=== PATIENT | male | born 1945 | race Caucasian/White ===

== ENCOUNTER 2016-10-10 19:33 | Observation (INO) | payer SELFPAY ==
[2016-10-10 19:45] VITALS: BP 116/71; PULSE 77; RESP 18; TEMP 97.9; O2SAT 98
[2016-10-10 20:16] LABS: BASO # 0.1 K/uL (0.0-0.2); BASO % 0.6 % (0.0-2.0); EOS # 0.3 K/uL (0.0-0.7); EOS % 2.7 % (0.0-4.0); HEMATOCRIT 41.4 % (35.0-51.0); LYMPH # 3.2 K/uL (1.0-4.3); LYMPH % 28.3 % (20.0-40.0); MEAN CELL VOLUME 95.5 fl (80.0-94.0); MEAN CORPUSCULAR HEMOGLOBIN 31.8 pg (27.0-31.0); MEAN CORPUSCULAR HGB CONC 33.3 g/dL (33.0-37.0); MEAN PLATELET VOLUME 8.4 fl (7.2-11.7); MONO # 0.5 K/uL (0.0-0.8); MONO % 4.4 % (0.0-10.0); NEUT # 7.2 K/uL (1.8-7.0); RED CELL DISTRIBUTION WIDTH 15.9 % (11.5-14.5); WHITE BLOOD COUNT 11.2 K/uL (4.8-10.8)
[2016-10-10 20:27] LABS: ALB/GLOB RATIO 1.1 (1.0-2.1); ALCOHOL SERUM 207 mg/dl (0-10); ALKALINE PHOSPHATASE 82 U/L (38-126); ALT/SGPT 27 U/L (21-72); AST/SGOT 18 U/L (17-59); BILIRUBIN,TOTAL 0.3 mg/dl (0.2-1.3); BLOOD UREA NITROGEN 18 mg/dl (9-20); CALCIUM 9.9 mg/dL (8.4-10.2); CARBON DIOXIDE 24 mmol/L (22-30); CHLORIDE 103 mmol/L (98-107); GFR AFRICAN-AMERICAN > 60; GLUCOSE,RANDOM 134 mg/dL (75-110); POTASSIUM 3.9 MMOL/L (3.6-5.0); SODIUM 144 mmol/l (132-148); TOTAL PROTEIN 8.2 G/DL (6.3-8.2)
--- NOTE | 2016-10-10 23:30 | ED PDOC ---
HPI: Psych/Substance Abuse Time Seen by Provider: 10/10/16 19:45 Chief Complaint (Nursing): Alcohol Ingestion Chief Complaint (Provider): alcohol intoxication ED Caveat: Intoxicated History Per: Patient History/Exam Limitations: intoxication Onset/Duration Of Symptoms: Hrs Current Symptoms Are (Timing): Still Present Additional Complaint(s): Blaise Bryant, a 70 year old male, presents to the ED for alcohol intoxication. The patient is alert but has slurred speech. The patient states that he has no medical complaints. History is limited due to patient's intoxicated state. Past Medical History Reviewed: Historical Data, Nursing Documentation, Vital Signs, Unable To Obtain (due to alcohol intoxication) Vital Signs: Last Vital Signs Temp 97.9 F 10/10/16 19:43 Pulse 77 10/10/16 19:43 Resp 18 10/10/16 19:43 BP 116/71 10/10/16 19:43 Pulse Ox 98 10/10/16 19:43 - Family History Family History: States: No Known Family Hx - Allergies Allergies/Adverse Reactions: Allergies Allergy/AdvReac Type Severity Reaction Status Date / Time No Known Allergies Allergy Verified 10/10/16 19:45 Review of Systems Review Of Systems: ROS cannot be obtained secondary to pt's inabilty to answer questions. (due to alcohol intoxication) Physical Exam - Reviewed Nursing Documentation Reviewed: Yes Vital Signs Reviewed: Yes - Physical Exam Appears: Positive for: Non-toxic, No Acute Distress Head Exam: Positive for: ATRAUMATIC, NORMAL INSPECTION, NORMOCEPHALIC Skin: Positive for: Normal Color, Warm, Dry Eye Exam: Positive for: Normal appearance, EOMI, PERRL ENT: Positive for: Normal ENT Inspection Neck: Positive for: Normal, Painless ROM, Supple Cardiovascular/Chest: Positive for: Regular Rate, Rhythm, Chest Non Tender. Negative for: Murmur, Tachycardia Respiratory: Positive for: Normal Breath Sounds. Negative for: Wheezing, Respiratory Distress Gastrointestinal/Abdominal: Positive for: Normal Exam, Soft. Negative for: Tenderness Back: Positive for: Normal Inspection. Negative for: L CVA Tenderness, R CVA Tenderness Extremity: Positive for: Normal ROM. Negative for: Deformity, Swelling Neurologic/Psych: Positive for: Alert, Other (Slurred Speech) - Laboratory Results Result Diagrams: 10/10/16 20:05 10/10/16 20:05 - ECG O2 Sat by Pulse Oximetry: 98 (RA) Pulse Ox Interpretation: Normal Medical Decision Making Medical Decision Makin:45 Initial impression: 70 year old intoxicated male Initial Plan: * Alcohol serum * CMP * Drug screen * CBC * Accucheck * ED Observation * Reevaluation 0330: Patient clinically sober and stable for d/c. Dx: alcohol abuse condition: stable Scribe Attestation Documented by Kristina Maier training under Fernie Bustos acting as a scribe for Willaim Olson MD. Provider Attestation: All medical record entries made by the Scribe were at my direction and personally dictated by me. I have reviewed the chart and agree that the record accurately reflects my personal performance of the history, physical exam, medical decision making, and the department course for this patient. I have also personally directed, reviewed, and agree with the discharge instructions and disposition. ED OBSERVATION Date of observation admission: 10/10/16 Time of observation admission: 22:53 - Observation admission statement Patient is being placed in observation because:: Alcohol Intoxication - Goals of Observation Goals of observation are:: Pending clinical sobriety Disposition - Clinical Impression Clinical Impression: Alcohol abuse - Patient ED Disposition Is Patient to be Admitted: No - Disposition Disposition: Routine/Home Disposition Time: 22:53 Condition: STABLE
== END 2016-10-11 06:16 | disposition home or self-care (01) ==
LOC: H.ER 19:33 → H.EROBSV 22:53
PROVIDERS: ADMIT Emergency Medicine; ATTEND Emergency Medicine
DX: F10.129 Alcohol abuse with intoxication, unspecified (principal); Y90.7 Blood alcohol level of 200-239 mg/100 ml
CPT/HCPCS: 80053; 85025; 99282; G0378; G0480